=== PATIENT | female | born 1960 | race Caucasian/White ===

== ENCOUNTER 2020-08-27 09:24 | Inpatient (IN) | payer OTHER, SELFPAY ==
[2020-08-27 09:25] VITALS: BP 153/128; PULSE 80; RESP 18; TEMP 36.6; O2SAT 100; BMI 35.0
--- NOTE | 2020-08-27 09:49 | US_ITS ---
STUDY: ABDOMINAL ULTRASOUND - RIGHT UPPER QUADRANT REASON FOR VISIT: Female, 60 years old RUQ PAIN X 1 DAY TECHNIQUE: Ultrasound evaluation of the right upper quadrant was performed with real-time and static padilla-scale imaging. TECHNICAL QUALITY: Adequate. COMPARISON: None. FINDINGS: Liver: The liver measures 15 cm. There is increased echogenicity consistent with fatty infiltration. The bile ducts are within normal limits. There is hepatic color flow. The direction of portal flow is hepatopetal. There is no demonstrated mass lesion. Gallbladder: Normal distended gallbladder. The gallbladder wall measures 3.7 mm. There is a positive sonographic Comer''s sign. There is no pericholecystic fluid. There are multiple echogenic structures within the gallbladder, consistent with multiple gallstones. Common Bile Duct (C.B.D.): The common bile duct measures 4.5 mm. Pancreas: Normal size of the head, body and tail of the pancreas. There is increased echogenicity of the pancreas. There is no demonstrated pancreatic mass or cyst. Right Kidney: Normal size of the right kidney. The right kidney measures 10.3 cm. Normal renal cortex. The right cortex measures 1.5 cm. There is no demonstrated renal mass or cyst. There is no right hydronephrosis. US/Abdomen Limited IMPRESSION: 1. Fatty steatosis of the liver 2. Positive sonographic COMER sign with slight gallbladder wall thickening and multiple stones. 3. Mildly echogenic pancreas Electronically Signed: Gilberto Hooks DO at 11:41 EST Tel , Service support ,
--- NOTE | 2020-08-27 09:53 | ED.DCSUM_ITS ---
History of Present Illness Chief Complaint: Abd Pain Informant: Patient Onset: Yesterday Context: Gradual Onset Timing: Continuous Current Severity: Moderate Maximum Severity: Moderate Narrative: The patient is a 60-year-old female who is otherwise healthy the presents to the emergency department abdominal pain. Patient states that she ate about 6 PM last night. States 1 hour later, she began to have abdominal pain. She describes it as most in the epigastric area towards her right upper quadrant. She states the pain never really went away. Because of the pain, she got nauseated. She states that she is had multiple bouts of emesis. She states now she is just to the point of dry heaves. She states that she has had this pain before in the past, but it was transient and went away. She has no history of prior abdominal surgery. She denies chest pain or shortness of breath. She denies any fevers or chills. She states she is otherwise been in her normal state of health. Prior similar symptoms: Yes Recent Illness/Hospitalization: No Past Medical History - Allergies and Home Meds Allergies/Adverse Reactions: Allergies diphenhydramine [From Benadryl] Adverse Reaction (Verified 08/27/20 09:27) NEEDS FOLLOW-UP Primary Care Physician: Vipin Gutierrez,Out of [NON-STAFF] - Prior records reviewed: Yes Past Medical History: None Surgical History: noncontributory Smoking Status: Never smoker Review of Systems General: Denies: Chills, Fever, Sweats Eyes: Denies: Visual changes - bilaterally, Diplopia ENT: Denies: Rhinorrhea, Sore throat Cardiovascular: Denies: Chest pain, Palpitations Respiratory: Denies: Dyspnea, Cough, Dyspnea on exertion Gastrointestinal: Reports: Abdominal pain, Nausea, Vomiting. Denies: Diarrhea, Melena, Hematochezia Genitourinary: Denies: Dysuria, Hematuria, Frequency Musculoskeletal: Denies: Back pain, Extremity Pain Skin: Denies: Rash, Wounds Neurological: Denies: Headache, Weakness, Numbness Physical Exam Vital Signs/Narrative: Vital Signs Temp Pulse Resp BP Pulse Ox 08/27/20 09:25 97.9 F 80 18 153/128 H 100 Inital Vital Signs reviewed: Yes General: Well nourished, Well developed, No Acute Distress Head: Normocephalic, Atraumatic Eyes: Perrl, EOMI ENT: Moist mucous membranes, No rhinorrhea Neck: Supple, Nontender Cardiovascular: Regular rate, Regular rhythm, No murmurs Respiratory: No distress, CTA bilaterally, Chest nontender Abdomen: Soft, Nondistended, Normal bowel sounds, Tender - Tender in the midepigastric area and right upper quadrant without rebound or guarding Back: Nontender, Normal Inspection Extremities: Nontender, No edema Skin: Normal color, No rash Neurological: Alert, Oriented x3, Cranial nerves II-XII grossly intact, Normal Strength, Normal Sensation Psychological: Normal affect, Normal Mood Diagnostic/Tx/Re-eval Clinical Impression(s) from Imaging Studies Abdomen Ultrasound 08/27/20 09:49 IMPRESSION: 1. Fatty steatosis of the liver 2. Positive sonographic COMER sign with slight gallbladder wall thickening and multiple stones. 3. Mildly echogenic pancreas Electronically Signed: Gilberto Hooks DO at 11:41 EST Tel , Service support , Abnormal Lab Results 08/27/20 08/27/20 08/27/20 09:55 09:55 11:20 WBC 14.4 H RBC 4.44 Hgb 13.8 Hct 41.9 MCV 94.4 MCH 31.1 MCHC 32.9 RDW Std Deviation 44.5 H RDW Coeff of Dhiraj 12.8 Plt Count 220 MPV 10.2 Immature Gran % (Auto) 0.300 Neut % (Auto) 84.4 H Lymph % (Auto) 9.0 L Wirt % (Auto) 6.2 Eos % (Auto) 0.0 Baso % (Auto) 0.1 Absolute Neuts (auto) 12.2 H Absolute Lymphs (auto) 1.30 Nucleated RBC % 0 Sodium 140 Potassium 4.1 Chloride 105 Carbon Dioxide 28.0 Anion Gap 7 BUN 20 H Creatinine 0.94 Estim Creat Clear Calc 53.96 Est GFR (MDRD) Af Amer 79 Est GFR (MDRD) Non-Af 65 BUN/Creatinine Ratio 21.3 H Glucose 126 H Calcium 9.2 Total Bilirubin 0.40 Direct Bilirubin 0.09 AST 26 ALT 49 Alkaline Phosphatase 96 Total Protein 7.4 Albumin 4.1 Globulin 3.3 Lipase 152 Urine Color Yellow Urine Clarity Clear Urine pH 6.0 Ur Specific [place] 1.025 Urine Protein 15 H Urine Glucose (UA) Normal Urine Ketones Negative Urine Occult Blood Negative Urine Nitrite Negative Urine Bilirubin Negative Urine Urobilinogen Normal Ur Leukocyte Esterase Negative Urine RBC 0 SEEN Urine WBC 0 SEEN Ur Squamous Epith Cells 0-5 SEEN Urine Bacteria 0 SEEN Urine Mucus 0 SEEN - Medical Decision Making Patient presents with midepigastric pain into her right upper quadrant with nausea and vomiting. IV was established. The patient was given analgesics and antiemetics. She had almost total resolution of her symptoms. Screening labs were obtained. She does have a leukocytosis. Liver functions, lipase, and chemistry is otherwise unremarkable. With the patient symptoms, she underwent right upper quadrant ultrasound. The right upper quadrant ultrasound did have a positive Comer sign and some questionable gallbladder wall thickening. The patient still had some persistent nausea. I do feel at this point, most prudent plan would be for surgical evaluation. The patient was discussed with Dr. Silver. Impression 1. Right upper quadrant pain 2. Early cholecystitis ED Disposition - Plan for ED Patient: Referrals: [facility] Doctor,Out of [NON-STAFF] -
[2020-08-27] MEDS: Ondansetron 4 MG/2 ML Vial IV ×3 (10:06→20:12)
[2020-08-27] MEDS: 0.9% Normal Saline 1,000 ML 1000 ML IV (10:06)
[2020-08-27] MEDS: Ketorolac 15 MG/ML Vial IV (10:06)
[2020-08-27] MEDS: Morphine 4 MG/ML Syringe IV (10:07)
[2020-08-27 10:08] LABS: Absolute Neutrophil Count 12.2 X10^3/uL (2.0-7.7); Basophil# 0.02 X10^3/uL; Basophil% 0.1 % (0-1); Hematocrit 41.9 % (37-47); Hemoglobin 13.8 g/dL (12.0-15.0); Mean Corp Hgb Conc 32.9 g/dL (32-36); Mean Corpuscular Hgb 31.1 pg (27.0-32.0); Mean Corpuscular Volume 94.4 fL (81-99); Mean Platelet Vol. 10.2 fl (6.2-12.0); Monocyte# 0.89 X10^3/uL; Monocyte% 6.2 % (0-10); NRBC Flagged by Analyzer 0 % (0-5); Neutrophil # 12.16 X10^3/uL (2.7-7.7); Neutrophil % 84.4 % (47-70); Platelet Count 220 K/mm3 (150-450); RBC Distribution Width CV 12.8 % (11.6-14.6); RBC Distribution Width SD 44.5 fl (35.1-43.9); Red Blood Count 4.44 M/mm3 (4.2-5.4); White Blood Count 14.4 K/mm3 (4.4-11.0)
[2020-08-27 10:31] LABS: AST(SGOT) 26 U/L (15-37); Alanine Aminotransfer ALT/SGPT 49 U/L (13-56); Albumin, Serum 4.1 g/dL (3.2-5.0); Alkaline Phosphatase 96 U/L (45-117); Anion Gap 7 (5-15); BUN 20 mg/dL (7-18); BUN/Creat Ratio 21.3 RATIO (10-20); Bilirubin, Direct 0.09 mg/dL (0.00-0.30); Calcium,Total 9.2 mg/dL (8.5-10.1); Chloride 105 mmol/L (98-107); Creatinine, Serum 0.94 mg/dL (0.55-1.02); EST Glomerular Filtration Rate 65 mL/min (>60); Est Glom Filt Rate - Afr Amer 79 mL/min (>60); Estimated Creatinine Clearance 53.96 ml/min; Globulin 3.3 g/dL (2.2-4.2); Glucose 126 mg/dL (74-106); Lipase 152 U/L (73-393); Potassium 4.1 mmol/L (3.5-5.1); Protein, Total 7.4 g/dL (6.4-8.2); Sodium Level 140 mmol/L (136-145)
[2020-08-27 11:26] LABS: Bacteria 0 SEEN /hpf (None Seen); Mucous, Urine 0 SEEN /hpf (<or=2+); Red Blood Cells-Urine 0 SEEN /hpf (0-5); White Blood Cells 0 SEEN /hpf (0-5)
[2020-08-27 11:27] LABS: Color, Urine Yellow (Yellow); Glucose, Dipstick Normal (Normal); Ketone-Dipstick Negative (Negative); Leukocyte Esterase-Dipstick Negative /ul (Negative); Nitrite-Dipstick Negative (Negative); Occult Blood-Urine Negative /ul (Negative); Protein-Dipstick 15 mg/dl (Negative); Specific Gravity, Urine 1.025 (1.002-1.030); Urine Bilirubin Dipstick Negative (Negative); Urine Clarity Clear (Clear); Urine Urobilinogen Normal (Normal)
[2020-08-27 11:33] LABS: Squamous Epithelial Cells - UA 0-5 SEEN /hpf (5-10)
--- NOTE | 2020-08-27 13:01 | NURSING ---
MED SURG CHOLECYSTITIS ROBOTHAM
[2020-08-27 13:29] VITALS: BP 115/67; PULSE 74; RESP 16; TEMP 36.6; O2SAT 98
[2020-08-27 14:07] VITALS: BMI 36.8; BMI 36.9
--- NOTE | 2020-08-27 14:27 | HP.PCM_ITS ---
History of Present Illness Date of Admission: 08/27/20 The patient is a 60 year old F presented to the ER due to epigastric abdominal pain nausea and vomiting. Patient states the pain started last night in the epigastric region continued to get worse. Patient states the pain started about an hour after eating. Patient states she has had previous episodes with increased pain like this twice months did wake her up from sleeping on the other patient stated it was not directly related to eating. Patient ultrasound which showed gallbladder wall of 3.7 mm, gallstones, no pericholecystic fluid, normal common bile duct, normal CBD, increased white blood cell count at 14 with a left shift, positive Comer sign. Patient did get Zosyn IV in the ER. Patient states she does have a history of reflux but does not occur very often depends on what she eats. Patient symptoms from this was burning in the esophagus. Patient is not on any medication for the reflux. Past Medical History Allergies diphenhydramine [From Benadryl] Adverse Reaction (Verified 08/27/20 09:27) NEEDS FOLLOW-UP Home Medications: Ambulatory Orders Medication Instructions Recorded Calcium Carbonate/Vitamin D3 1 ea PO DAILY 08/27/20 [Calcium 500-Vit D3 600 Caplet] Cholecalciferol (Vitamin D3) 2,000 unit PO DAILY 08/27/20 [Vitamin D3] Fish Oil/Dha/Epa [Fish Oil 1,200 1 ea PO DAILY 08/27/20 mg Fish Oil] Ibuprofen 600 mg PO BID PRN PRN 08/27/20 Multivit-Min/Iron/Folic/Rxz279 1 ea PO DAILY 08/27/20 [Hair, Skin and Nails Tablet] Surgical History: - - Lesion removed from the top of her mouth Psychiatric History: No pertinent psych hx ENROLLMENT MANAGER History: No pertinent ENROLLMENT MANAGER history Smoking Status: Never smoker - *Family History Maternal History Items: No pertinent history Review of Systems Constitutional: Reports: Anorexia. Denies: Fever HEENT: Denies: Difficulty Swallowing Cardiovascular: Denies: Chest Pain Respiratory: Denies: Cough Gastrointestinal: Reports: Abdominal Pain, Nausea, Vomiting Genitourinary: Denies: Dysuria Skin: Denies: Jaundice Neurological: Denies: Balance problems Psychiatric: Denies: Depression Hematologic/ Lymphatic: Denies: Easy Bruising, Easy Bleeding VTE Information - Inpt Only VTE Present on Admission: Yes VTE Mechan Device Prophylaxis: SCD's - Physical Exam Vitals/I&O's: Vital Signs Temp Pulse Resp BP Pulse Ox 97.8 F 74 16 115/67 98 08/27/20 13:29 08/27/20 13:29 08/27/20 13:29 08/27/20 13:29 08/27/20 13:29 Oxygen Delivery Method Room Air Weight: 208 lb 5.389 oz Body Mass Index (BMI) 36.8 Intake and Output for Last 24 Hours 08/25/20 08/26/20 08/27/20 23:59 23:59 23:59 Intake Total 1100 / 1100 Balance 1100 / 1100 General: Alert, Oriented x3, Cooperative, No apparent distress HEENT: Atraumatic Lungs: Normal air movement Cardiovascular: Regular rate Abdomen: Soft, Non-Distended, Tender - Right upper quadrant and epigastric, greater in the right upper quadrant Extremities: No clubbing, No cyanosis, No edema Lymphatic: No Cervical, Supraclavicular, or Inguinal Adenopathy Neurological: Cranial nerves II-XII grossly intact Microbiology Past 72 Hours 08/27/20 12:05 Mucosa - Nose SARS-CoV-2 Antigen (Rapid) - Final Laboratory Results 08/27/20 09:55: WBC 14.4 H, RBC 4.44, Hgb 13.8, Hct 41.9, MCV 94.4, MCH 31.1, MCHC 32.9, RDW Std Deviation 44.5 H, RDW Coeff of Dhiraj 12.8, Plt Count 220, MPV 10.2, Immature Gran % (Auto) 0.300, Neut % (Auto) 84.4 H, Lymph % (Auto) 9.0 L, [place] % (Auto) 6.2, Eos % (Auto) 0.0, Baso % (Auto) 0.1, Absolute Neuts (auto) 12.2 H, Absolute Lymphs (auto) 1.30, Nucleated RBC % 0 08/27/20 09:55: Sodium 140, Potassium 4.1, Chloride 105, Carbon Dioxide 28.0, Anion Gap 7, BUN 20 H, Creatinine 0.94, Estim Creat Clear Calc 53.96, Est GFR (MDRD) Af Amer 79, Est GFR (MDRD) Non-Af 65, BUN/Creatinine Ratio 21.3 H, Glucose 126 H, Calcium 9.2, Total Bilirubin 0.40, Direct Bilirubin 0.09, AST 26, ALT 49, Alkaline Phosphatase 96, Total Protein 7.4, Albumin 4.1, Globulin 3.3, Lipase 152 08/27/20 11:20: Urine Color Yellow, Urine Clarity Clear, Urine pH 6.0, Ur Specific [place] 1.025, Urine Protein 15 H, Urine Glucose (UA) Normal, Urine Ketones Negative, Urine Occult Blood Negative, Urine Nitrite Negative, Urine Bilirubin Negative, Urine Urobilinogen Normal, Ur Leukocyte Esterase Negative, Urine RBC 0 SEEN, Urine WBC 0 SEEN, Ur Squamous Epith Cells 0-5 SEEN, Urine Bacteria 0 SEEN, Urine Mucus 0 SEEN Current Medications Lactated Ringer's () 1,000 mls @ 125 mls/hr IV .Q8H [facility]ANE Piperacillin Sod/Tazobactam (Sod 3.375 gm/ Sodium Chloride) 50 mls @ 12.5 mls/hr IV Q8 [facility] Pantoprazole Sodium 40 mg/ (Sodium Chloride) 110 mls @ 330 mls/hr IV Q24 [facility] Morphine Sulfate (Morphine 2 Mg/Ml Syringe) 2 - 4 mg IV Q2H PRN PRN PRN Reason: Pain Score 1-10 Ondansetron HCl (Ondansetron 4 Mg/2 Ml Vial) 4 mg IV Q8H PRN PRN PRN Reason: NAUSEA Assessment/Plan 60-year-old female with cholelithiasis, acute cholecystitis, reflux Reviewed the anatomy with the patient and discussed the procedure: laparoscopic cholecystectomy with possible cholangiograms, possible open. Review risks including but not limited to bleeding, infection, hernia, bile leak, retained gallstones requiring another procedure ERCP- Endoscopic Retrograde Cholangiopancreatography, injury to another organ (bile ducts, common bile duct, small bowel, etc.) may require transfer to another facility and conversion to an open procedure. All questions were answered. Plan for surgery tomorrow We will also place patient on Protonix 40 mg IV daily, in addition to Zosyn 3.375 g IV every 8 hours for acute cholecystitis Yoli Silver M.D. Pager: [phone] [facility] [address] [place] [address], [address] [place] [address] Office: [phone] Procedure Criteria Procedure Type: Elective COVID Risk Discussion: The surgeon/proceduralist and patient have discussed in detail the risk of exposure to and/or potential harm posed by the COVID-19 virus with having a surgery/procedure at this time versus the risk of delaying the surgery/procedure. It is not possible to know either the risk of delaying the surgery or procedure or chance of getting an infection with perfect accuracy, but a joint decision was made between the patient and the surgeon/proceduralist to proceed at this time with the scheduled surgery/procedure as indicated on the consent form.
[2020-08-27 14:32] VITALS: BP 113/65; PULSE 70; RESP 18; TEMP 36.6; O2SAT 98
[2020-08-27] MEDS: 0.9% Normal Saline 1,000 ML 125 ML IV ×2 (15:28→22:40)
[2020-08-27 18:53] VITALS: BP 108/59; PULSE 78; RESP 18; TEMP 37; O2SAT 96
[2020-08-27] MEDS: Morphine 2 MG/ML Syringe IV ×2 (20:12→22:40)
[2020-08-27 20:25] VITALS: BP 104/54; PULSE 84; RESP 18; TEMP 37.2; O2SAT 96
[2020-08-28] VITALS (11 sets, daily range): BP systolic 91–120; BP diastolic 50–68; PULSE 50–98; RESP 16–18; TEMP 36.6–38.1; O2SAT 92–97; BMI 36.8
--- NOTE | 2020-08-28 | GALL_PTH ---
PATIENT: ROXANA GUERRA LOC: MS3 U#:[id number] AGE/SX: 60/F ROOM: MS313 RE08/28/[address]: Dr. Yoli Silver MD : [id number] BED: 1 DIS: 08/29/2020 SPEC #: [id number] RECD: 08/28/20 15:13 STATUS: JENSEN REJosee #: [id number] YANA: 08/28/20 00:[address]: Yoli Silver DEPT: SURGICAL PATHOLOGY RECD BY: Troy John ENTERED: 08/29/20 08:49 SP TYPE: TOSHA PERERA DR: No Primary Care Phys Tissues: Gallbladder, NOS Procedures: Surgery Specimen Level III HEADER OPERATION: Laparoscopic cholecystectomy with IOC PRE-OP DIAGNOSIS: Cholelithiasis; acute cholecystitis; reflux TISSUE SUBMITTED: Gallbladder and contents MICROSCOPIC DIAGNOSIS Gallbladder, cholecystectomy: Acute and chronic cholecystitis with denudation of mucosa and cholelithiasis. AM:ellie 08/30/20 MICROSCOPIC DESCRIPTION Slides are reviewed. GROSS DESCRIPTION Received is one container labeled with the patient's name and designated gallbladder and contents. The specimen consists of a gallbladder measuring 10 cm in length and up to 3 cm in diameter. The serosa is congested. The mucosa is also congested and hemorrhagic. The external surface is pink-gerardo, smooth and glistening for the most part. Focally it is granular, hemorrhagic and contains cautery artifact. Present in the gallbladder and in the container are multiple variable sized brownish-black fragments of stone and stone fragments measuring in aggregate 5 x 5 x 1 cm and 0.1 to 1.5 cm in greatest dimension. The mucosa is bile-stained and without any mass lesions. The gallbladder wall measures up to 1 cm in thickness. Subserosal fat is also noted. One of the stones is impacted at the cystic duct. [employer] Well[employer] Director sections from the gallbladder and the cystic duct are submitted in one cassette. / SJ:ellie 08/29/20 TC:2 CPT: 45912
[2020-08-28] MEDS: Morphine 2 MG/ML Syringe IV ×4 (04:32→22:22)
[2020-08-28] MEDS: Ondansetron 4 MG/2 ML Vial IV (04:32)
[2020-08-28] MEDS: 0.9% Normal Saline 1,000 ML 125 ML IV ×2 (05:29→16:41)
[2020-08-28 05:53] LABS: Absolute Lymphocyte Count 1.39 X10^3/uL (0.83-4.51); Basophil# 0.02 X10^3/uL; Basophil% 0.2 % (0-1); Eosinophil# 0.06 X10^3/uL; Eosinophils% 0.5 % (0-5); Hematocrit 33.3 % (37-47); Hemoglobin 10.9 g/dL (12.0-15.0); Lymphocyte # 1.39 X10^3/ul (4.0); Lymphocyte % 11.8 % (19-41); Mean Corp Hgb Conc 32.7 g/dL (32-36); Mean Corpuscular Hgb 31.3 pg (27.0-32.0); Mean Corpuscular Volume 95.7 fL (81-99); Mean Platelet Vol. 10.2 fl (6.2-12.0); Monocyte# 1.19 X10^3/uL; Monocyte% 10.1 % (0-10); NRBC Flagged by Analyzer 0 % (0-5); Neutrophil # 9.04 X10^3/uL (2.7-7.7); Neutrophil % 77.1 % (47-70); Platelet Count 150 K/mm3 (150-450); RBC Distribution Width CV 13.3 % (11.6-14.6); RBC Distribution Width SD 47.2 fl (35.1-43.9); Red Blood Count 3.48 M/mm3 (4.2-5.4); White Blood Count 11.7 K/mm3 (4.4-11.0)
--- NOTE | 2020-08-28 06:00 | EKG12_ITS ---
Test Reason : PRE-OP Blood Pressure : / mmHG Vent. Rate : 083 BPM Atrial Rate : 083 BPM P-R Int : 154 ms QRS Dur : 088 ms QT Int : 360 ms P-R-T Axes : 030 -18 012 degrees QTc Int : 423 ms Normal sinus rhythm Normal ECG Confirmed by ERIN LEE, DANNIE ([id number]), associate editor FLORIAN DANG ([id number]) on 08/30/2020 9:54:50 AM Referred By: DR ADDISON Confirmed By:DANNIE KHAN MD
[2020-08-28 06:38] LABS: AST(SGOT) 27 U/L (15-37); Alanine Aminotransfer ALT/SGPT 49 U/L (13-56); Albumin, Serum 2.9 g/dL (3.2-5.0); Alkaline Phosphatase 72 U/L (45-117); Anion Gap 4 (5-15); BUN 13 mg/dL (7-18); BUN/Creat Ratio 16.2 RATIO (10-20); Bilirubin, Direct 0.33 mg/dL (0.00-0.30); Calcium,Total 7.6 mg/dL (8.5-10.1); Chloride 109 mmol/L (98-107); EST Glomerular Filtration Rate 78 mL/min (>60); Est Glom Filt Rate - Afr Amer 94 mL/min (>60); Estimated Creatinine Clearance 63.41 ml/min; Globulin 2.8 g/dL (2.2-4.2); Glucose 127 mg/dL (74-106); Potassium 3.2 mmol/L (3.5-5.1); Protein, Total 5.7 g/dL (6.4-8.2); Sodium Level 139 mmol/L (136-145)
[2020-08-28] MEDS: Potassium Chloride 10mEq/100mL 10 MEQ/100 ML IV.SOLN. 100 MEQ IV BOLUS ×4 (09:25→13:51)
--- NOTE | 2020-08-28 10:21 | PCM.PN.SRG ---
Subjective: Patient's pain controlled with medication, white blood count improved on IV Zosyn - Physical Exam Vitals/I&O's: Vital Signs Temp Pulse Resp BP Pulse Ox 99.4 F H 82 16 102/51 L 92 08/28/20 08:52 08/28/20 08:52 08/28/20 08:52 08/28/20 08:52 08/28/20 08:52 Oxygen Delivery Method Room Air Weight: 208 lb 5.389 oz Body Mass Index (BMI) 36.8 Intake and Output for Last 24 Hours 08/26/20 08/27/20 08/28/20 23:59 23:59 23:59 Intake Total 2057.92 / 2707.92 1602.08 / 1602.08 Output Total 350 / 350 Balance 2057.92 / 2707.92 1252.08 / 1252.08 General: Alert, Oriented x3, Cooperative, No apparent distress HEENT: Atraumatic Lungs: Normal air movement Cardiovascular: Regular rate Abdomen: Soft, Non-Distended, Tender - Right upper quadrant and epigastric Extremities: No clubbing, No cyanosis, No edema Neurological: Cranial nerves II-XII grossly intact Psych/Mental Status: Normal Affect Microbiology Past 72 Hours 08/27/20 12:05 Mucosa - Nose SARS-CoV-2 Antigen (Rapid) - Final Laboratory Results 08/27/20 09:55: Sodium 140, Potassium 4.1, Chloride 105, Carbon Dioxide 28.0, Anion Gap 7, BUN 20 H, Creatinine 0.94, Estim Creat Clear Calc 53.96, Est GFR (MDRD) Af Amer 79, Est GFR (MDRD) Non-Af 65, BUN/Creatinine Ratio 21.3 H, Glucose 126 H, Calcium 9.2, Total Bilirubin 0.40, Direct Bilirubin 0.09, AST 26, ALT 49, Alkaline Phosphatase 96, Total Protein 7.4, Albumin 4.1, Globulin 3.3, Lipase 152 08/27/20 11:20: Urine Color Yellow, Urine Clarity Clear, Urine pH 6.0, Ur Specific [place] 1.025, Urine Protein 15 H, Urine Glucose (UA) Normal, Urine Ketones Negative, Urine Occult Blood Negative, Urine Nitrite Negative, Urine Bilirubin Negative, Urine Urobilinogen Normal, Ur Leukocyte Esterase Negative, Urine RBC 0 SEEN, Urine WBC 0 SEEN, Ur Squamous Epith Cells 0-5 SEEN, Urine Bacteria 0 SEEN, Urine Mucus 0 SEEN 08/28/20 05:40: WBC 11.7 H, RBC 3.48 L, Hgb 10.9 L, Hct 33.3 L, MCV 95.7, MCH 31.3, MCHC 32.7, RDW Std Deviation 47.2 H, RDW Coeff of Dhiraj 13.3, Plt Count 150, MPV 10.2, Immature Gran % (Auto) 0.300, Neut % (Auto) 77.1 H, Lymph % (Auto) 11.8 L, [place] % (Auto) 10.1 H, Eos % (Auto) 0.5, Baso % (Auto) 0.2, Absolute Neuts (auto) 9.0 H, Absolute Lymphs (auto) 1.39, Nucleated RBC % 0 08/28/20 05:40: Sodium 139, Potassium 3.2 L, Chloride 109 H, Carbon Dioxide 26.0, Anion Gap 4 L, BUN 13, Creatinine 0.80, Estim Creat Clear Calc 63.41, Est GFR (MDRD) Af Amer 94, Est GFR (MDRD) Non-Af 78, BUN/Creatinine Ratio 16.2, Glucose 127 H, Calcium 7.6 L, Total Bilirubin 0.90, Direct Bilirubin 0.33 H, AST 27, ALT 49, Alkaline Phosphatase 72, Total Protein 5.7 L, Albumin 2.9 L, Globulin 2.8 Current Medications Sodium Chloride () 1,000 mls @ 125 mls/hr IV .Q8H [facility] Last Admin: 08/28/20 05:29 Dose: 125 mls/hr Documented by: Piperacillin Sod/Tazobactam (Sod 3.375 gm/ Sodium Chloride) 50 mls @ 12.5 mls/hr IV Q8 [facility] Last Infusion: 08/28/20 09:30 Dose: Infused Documented by: Pantoprazole Sodium 40 mg/ (Sodium Chloride) 110 mls @ 330 mls/hr IV Q24 [facility] Last Infusion: 08/27/20 18:25 Dose: Infused Documented by: Sodium Chloride () 250 mls @ 15 mls/hr IV .[id number] PRN PRN Reason: Saline Flush Sodium Chloride () 250 mls @ 15 mls/hr IV .[id number] PRN PRN Reason: Additional IVPB Infusion Potassium Chloride () 10 meq in 100 mls @ 100 mls/hr IV BOLUS Q1H [facility] Stop: 08/28/20 13:29 Last Admin: 08/28/20 09:25 Dose: 100 mls/hr Documented by: Morphine Sulfate (Morphine 2 Mg/Ml Syringe) 2 - 4 mg IV Q2H PRN PRN PRN Reason: Pain Score 1-10 Last Admin: 08/28/20 04:32 Dose: 2 mg Documented by: Ondansetron HCl (Ondansetron 4 Mg/2 Ml Vial) 4 mg IV Q8H PRN PRN PRN Reason: NAUSEA Last Admin: 08/28/20 04:32 Dose: 4 mg Documented by: Sodium Chloride (0.9% Saline Lock 10 Ml Syringe) 10 - 40 ml IV UD PRN PRN Reason: SALINE FLUSH Medical Necessity - Tobacco Use Smoking Status: Never smoker Assessment/Plan 60-year-old female with cholelithiasis, acute cholecystitis, reflux plan for laparoscopic cholecystectomy today. Yoli Silver M.D. Pager: [phone] [facility] [address] [place] [address], [address] [place] [address] Office: [phone]
--- NOTE | 2020-08-28 13:00 | RAD_ITS ---
STUDY: INTRAOPERATIVE CHOLANGIOGRAM. REASON FOR EXAM: Female, 60 years old. OPERATIVE CHOLANGIOGRAM. CHOLECYSTITIS FLUOROSCOPY TIME (if supplied): ( 57.2 seconds ) minutes/seconds. A cine loop of 56 images were submitted. TECHNIQUE: An intraoperative glandular was performed by the surgeon. COMPARISON: None. FINDINGS: Nondilated intra and extra hepatic biliary ducts. I suspect a tiny filling defect in the distal portion of the common bile duct. There is flow of contrast into the duodenum. RAD/Cholangiogram/ O R,Initial IMPRESSION: Findings suggestive of a tiny calculus in the distal portion of the common bile duct although there is evidence of flow into the duodenum. Electronically Signed: Peter Lozano, at 12:32 EST , Service support ,
[2020-08-28] MEDS: Bupivacaine Mpf 0.5% 30 ML VIAL (14:26)
--- NOTE | 2020-08-28 14:27 | PCM.OPRPT ---
Report of Operation Date of Procedure: 08/28/20 Pre-Operative Diagnosis: Acute cholecystitis, cholelithiasis Post-Operative Diagnosis: Same, choledocholithiasis Surgery/Procedure Performed:: Laparoscopic cholecystectomy with cholangiograms Type of Anesthesia:: General/Supplemental Anesthesiologist: Faraz Lock Special Medications: Zosyn 3.375 g IV every 8 hours for acute cholecystitis given on the floor Specimen's removed: Gallbladder and stones Estimated Blood Loss (mL): 20 cc Fluids Replaced: 600 cc Description of Procedure: Indications this is a 60 year-old female who developed abdominal pain/nausea/vomiting and on workup was found to have acute cholecystitis with a thickened wall, cholelithiasis, with a normal common bile duct and normal LFTs. Laparoscopic cholecystectomy was elected. Description procedure: The patient was placed on operating table in supine position. General Anesthesia was induced. A timeout was completed verifying correct patient, procedure, site, position and special equipment prior to beginning procedure. The abdomen was prepped and draped in usual sterile fashion. An incision was made in the natural skin line above the umbilicus. The fascia was elevated and incised. The peritoneum was elevated and incised. Entry into the peritoneum was confirmed visually and no bowel was noted in the vicinity of the incision. Bradshaw trocar was placed. The abdomen was insufflated with carbon dioxide to a pressure of 12-15 mmHg. Patient tolerated insufflation well. The laparoscope was then inserted and abdomen inspected. No injuries from initial trocar placement were noted. Additional trochars were then inserted in the following locations 5 mm trocar in the epigastrium and 2 more 5 mm trochars along the right costal margin. The abdomen was inspected no abnormalities were found. The table is placed in reverse Trendelenburg position with the right side up. The adhesions between the gallbladder and omentum were lysed sharply. The dome of the gallbladder was grasped with atraumatic grasper passed through the lateral port and retracted over the dome of the liver. Infundibulum was then grasped with atraumatic grasper through the midclavicular port and retracted to the right lower quadrant. This maneuver exposed Calot's triangle. The peritoneum overlying the gallbladder infundibulum was then incised and cystic duct and artery identified and circumferentially dissected. Ranfac catheter was used for cholangiograms. A small incision was made in the right upper quadrant with a 15 blade scalpel to accommodate the Ranfac catheter. A clip was laced on the distal gallbladder and scissors used to make a anup into the cystic duct. Ranfac catheter was placed in the cystic duct. Cholangiograms showed good flow into the right and left bile ducts and showed evidence of a small stone at the distal common bile duct, did attempt to flush the stone through with saline/contrast but it did not appear to pass. The cystic duct and artery were then doubly clipped and divided close to the gallbladder. The gallbladder then dissected from its peritoneal attachments by electrocautery. Hemostasis was checked and the gallbladder and contained stones were removed using the endoscopic retrieval bag through the umbilical port. The gallbladder is passed off table as specimen. The gallbladder fossa was copiously irrigated with saline and hemostasis obtained. There is no evidence of bleeding from the gallbladder fossa or cystic artery leakage of bile from the cystic duct stump. Secondary trochars removed under direct vision. No bleeding was noted the trocar sites. The laparoscope was withdrawn and umbilical trocar removed. The abdomen was allowed to collapse. The fascia of the 12 mm trocar was closed with a [id number] 0 Vicryl suture. The skin was closed with sutures of 4-0 Monocryl and Steri-Strips. The orogastric tube was removed and the patient was extubated. The patient tolerated procedure well and was taken to the postanesthesia care unit in stable condition. - Complications None
[2020-08-28] MEDS: 0.9% Saline Lock 10 ML Syringe IV (17:23)
[2020-08-29] VITALS (8 sets, daily range): BP systolic 92–118; BP diastolic 51–67; PULSE 64–78; RESP 16–18; TEMP 36.6–37; O2SAT 92–100
[2020-08-29] MEDS: 0.9% Normal Saline 1,000 ML 125 ML IV ×2 (00:03→07:29)
[2020-08-29] MEDS: Morphine 2 MG/ML Syringe IV ×2 (03:03→07:54)
[2020-08-29] MEDS: 0.9% Saline Lock 10 ML Syringe IV ×3 (03:05→13:36)
[2020-08-29 07:02] LABS: Absolute Lymphocyte Count 0.87 X10^3/uL (0.83-4.51); Basophil# 0.01 X10^3/uL; Basophil% 0.1 % (0-1); Eosinophil# 0.01 X10^3/uL; Eosinophils% 0.1 % (0-5); Hematocrit 29.9 % (37-47); Hemoglobin 9.5 g/dL (12.0-15.0); Lymphocyte # 0.87 X10^3/ul (4.0); Mean Corp Hgb Conc 31.8 g/dL (32-36); Mean Corpuscular Hgb 31.1 pg (27.0-32.0); Mean Platelet Vol. 9.9 fl (6.2-12.0); Monocyte# 0.73 X10^3/uL; Monocyte% 7.5 % (0-10); NRBC Flagged by Analyzer 0 % (0-5); Neutrophil # 7.99 X10^3/uL (2.7-7.7); Neutrophil % 82.7 % (47-70); Platelet Count 133 K/mm3 (150-450); RBC Distribution Width CV 13.6 % (11.6-14.6); RBC Distribution Width SD 49.5 fl (35.1-43.9); Red Blood Count 3.05 M/mm3 (4.2-5.4); White Blood Count 9.7 K/mm3 (4.4-11.0)
--- NOTE | 2020-08-29 07:12 | PN.SURG_ITS ---
Subjective: Patient is not having any abdominal pain or nausea vomiting this morning - Physical Exam Vitals/I&O's: Vital Signs Temp Pulse Resp BP Pulse Ox 98.6 F 75 16 118/67 93 08/29/20 02:56 08/29/20 02:56 08/29/20 02:56 08/29/20 03:06 08/29/20 02:56 Oxygen Flow Rate (L/min) 2 Oxygen Delivery Method Room Air Weight: 208 lb 5.389 oz Body Mass Index (BMI) 36.8 Intake and Output for Last 24 Hours 08/27/20 08/28/20 08/29/20 23:59 23:59 23:59 Intake Total 2057.92 / 2707.92 3462.08 / 3462.08 1170.83 / 1170.83 Output Total 1150 / 1150 500 / 500 Balance 2057.92 / 2707.92 2312.08 / 2312.08 670.83 / 670.83 General: Alert, Oriented x3 Lungs: Normal air movement Abdomen: Soft, Non Tender, Non-Distended Microbiology Past 72 Hours 08/27/20 12:05 Mucosa - Nose SARS-CoV-2 Antigen (Rapid) - Final Laboratory Results 08/29/20 06:54: WBC 9.7, RBC 3.05 L, Hgb 9.5 L, Hct 29.9 L, MCV 98.0, MCH 31.1, MCHC 31.8 L, RDW Std Deviation 49.5 H, RDW Coeff of Dhiraj 13.6, Plt Count 133 L, MPV 9.9, Immature Gran % (Auto) 0.600, Neut % (Auto) 82.7 H, Lymph % (Auto) 9.0 L, Stanley % (Auto) 7.5, Eos % (Auto) 0.1, Baso % (Auto) 0.1, Absolute Neuts (auto) 8.0 H, Absolute Lymphs (auto) 0.87, Nucleated RBC % 0 08/29/20 06:54: Total Bilirubin Pending, Direct Bilirubin Pending, AST Pending, ALT Pending, Alkaline Phosphatase Pending, Total Protein Pending, Albumin Pending 08/29/20 06:54: Sodium Pending, Potassium Pending, Chloride Pending, Carbon Dioxide Pending, Anion Gap Pending, BUN Pending, Creatinine Pending, Est GFR (MDRD) Af Amer Pending, Est GFR (MDRD) Non-Af Pending, BUN/Creatinine Ratio Pending, Glucose Pending, Calcium Pending Current Medications Acetaminophen (Acetaminophen 325 Mg Tablet) 650 mg PO Q6H PRN PRN PRN Reason: Pain Score 1-10 Sodium Chloride () 1,000 mls @ 125 mls/hr IV .Q8H [facility] Last Admin: 08/29/20 00:03 Dose: 125 mls/hr Documented by: Piperacillin Sod/Tazobactam (Sod 3.375 gm/ Sodium Chloride) 50 mls @ 12.5 mls/hr IV Q8 [facility] [place] Last Admin: 08/29/20 05:41 Dose: 12.5 mls/hr Documented by: Pantoprazole Sodium 40 mg/ (Sodium Chloride) 110 mls @ 330 mls/hr IV Q24 [facility] [place] [place] Last Infusion: 08/28/20 17:02 Dose: Infused Documented by: Sodium Chloride () 250 mls @ 15 mls/hr IV .[id number] PRN PRN Reason: Saline Flush Sodium Chloride () 250 mls @ 15 mls/hr IV .[id number] PRN PRN Reason: Additional IVPB Infusion Morphine Sulfate (Morphine 2 Mg/Ml Syringe) 2 - 4 mg IV Q2H PRN PRN PRN Reason: Pain Score 1-10 Last Admin: 08/29/20 03:03 Dose: 4 mg Documented by: Ondansetron HCl (Ondansetron 4 Mg/2 Ml Vial) 4 mg IV Q8H PRN PRN PRN Reason: NAUSEA Last Admin: 08/28/20 04:32 Dose: 4 mg Documented by: Oxycodone HCl (Oxycodone 5 Mg Tablet) 5 - 10 mg PO Q4H PRN PRN PRN Reason: Pain Score 1-10 Sodium Chloride (0.9% Saline Lock 10 Ml Syringe) 10 - 40 ml IV UD PRN PRN Reason: SALINE FLUSH Last Admin: 08/29/20 03:05 Dose: 20 ml Documented by: Medical Necessity - Tobacco Use Smoking Status: Never smoker Assessment/Plan 60-year-old female with choledocholithiasis 1. Patient had laparoscopic cholecystectomy yesterday on intraoperative cholangiogram the patient was found to have a distal common bile duct stone. I discussed ERCP with the patient this morning. I discussed the risks including not limited to bleeding, infection, perforation of the bile duct or bowel, pancreatitis. Patient understands the risks and is willing to proceed with ERCP this afternoon. Eddie Saxena MD Pager: [facility] [address] [place] [address] [address] [place] [address] Office:
[2020-08-29 07:32] LABS: Anion Gap 6 (5-15); BUN 11 mg/dL (7-18); Calcium,Total 7.9 mg/dL (8.5-10.1); Chloride 108 mmol/L (98-107); Creatinine, Serum 0.85 mg/dL (0.55-1.02); EST Glomerular Filtration Rate 73 mL/min (>60); Est Glom Filt Rate - Afr Amer 88 mL/min (>60); Estimated Creatinine Clearance 59.68 ml/min; Glucose 129 mg/dL (74-106); Potassium 3.7 mmol/L (3.5-5.1); Sodium Level 139 mmol/L (136-145)
[2020-08-29 07:43] LABS: AST(SGOT) 51 U/L (15-37); Alanine Aminotransfer ALT/SGPT 102 U/L (13-56); Albumin, Serum 2.5 g/dL (3.2-5.0); Alkaline Phosphatase 84 U/L (45-117); Bilirubin, Direct 0.19 mg/dL (0.00-0.30); Globulin 3.3 g/dL (2.2-4.2); Protein, Total 5.8 g/dL (6.4-8.2)
--- NOTE | 2020-08-29 12:32 | NURSING ---
informed pt bowel sounds hypoactive, encouraged ambulation. Stated she had been ambulating in the room but will get up and sit in the recliner.
[2020-08-29] MEDS: Lactated Ringers 1,000 ML 100 ML IV (14:19)
--- NOTE | 2020-08-29 14:30 | RAD_ITS ---
STUDY: ERCP REASON FOR EXAM: Female, 60 years old. ERCP FLUOROSCOPY TIME (if supplied): ( 31.6 seconds ) minutes/seconds. 2 images were submitted. TECHNIQUE: An ERCP was performed by the surgeon. Imaging was performed COMPARISON: Comparison is made with prior examination dated 08/28/2020. FINDINGS: There is opacification of the common bile duct. No intraluminal filling defect is seen. RAD/ERCP Biliary Only IMPRESSION: No intraluminal filling defect is seen. Electronically Signed: Peter Lozano, at 15:20 EST , Service support ,
--- NOTE | 2020-08-29 15:14 | OP.ERCP_ITS ---
Patient Name: Radha Smith Procedure Date: 08/29/2020 2:29 PM Date of : 1960 Age: 60 Procedure: ERCP Indications: Common bile duct stone(s) Providers: Eddie Saxena MD Medicines: General Anesthesia Patient Profile: This is a 60 year old female. Refer to note in patient chart for documentation of history and physical. Complications: No immediate complications. Procedure: Pre-Anesthesia Assessment: - Prior to the procedure, a History and Physical was performed, and patient medications and allergies were reviewed. The patient's tolerance of previous anesthesia was also reviewed. The risks and benefits of the procedure and the sedation options and risks were discussed with the patient. All questions were answered, and informed consent was obtained. Prior Anticoagulants: The patient has taken no previous anticoagulant or antiplatelet agents. After reviewing the risks and benefits, the patient was deemed in satisfactory condition to undergo the procedure. After obtaining informed consent, the scope was passed under direct vision. Throughout the procedure, the patient's blood pressure, pulse, and oxygen saturations were monitored continuously. The duodenoscope was introduced through the mouth, and advanced to the duodenum and used to inject contrast into the bile duct. The ERCP was accomplished without difficulty. The patient tolerated the procedure well. Scope In: 2:56:28 PM Scope Out: 3:01:05 PM Total Procedure Duration Time 0 hours 4 minutes 37 seconds Findings: The major papilla was normal. A 0.035 inch x 260 cm straight Dreamwire was passed into the biliary tree. The sphincterotome was passed over the guidewire and the bile duct was then deeply cannulated. Contrast was injected. Biliary sphincterotomy was made with a monofilament sphincterotome using ERBE electrocautery. There was no post-sphincterotomy bleeding. The biliary tree was swept with a 12 mm balloon starting at the bifurcation. One stone was removed. No stones remained. The endoscope was withdrawn from the patient. Impression: - The major papilla appeared normal. - Choledocholithiasis was found. Complete removal was accomplished by biliary sphincterotomy and balloon extraction. - A biliary sphincterotomy was performed. - The biliary tree was swept. Recommendation: - Return patient to [facility] care. - Resume regular diet. Procedure Code(s): --- Professional --- 95355, Endoscopic retrograde cholangiopancreatography (ERCP); with removal of calculi/debris from biliary/pancreatic duct(s) 00521, 51, Endoscopic retrograde cholangiopancreatography (ERCP); with sphincterotomy/papillotomy Diagnosis Code(s): --- Professional --- K80.50, Calculus of bile duct without cholangitis or cholecystitis without obstruction CPT copyright 2017 [employer]. All rights reserved. The codes documented in this report are preliminary and upon onshore diver review may be revised to meet current compliance requirements. Eddie Saxena MD 08/29/2020 3:13:44 PM This report has been signed electronically. Number of Addenda: 0 Note Initiated On: 08/29/2020 2:29 PM
--- NOTE | 2020-08-29 15:14 | OP.CCLET_ITS ---
08/29/2020 No Primary Care Physician Re : ERCP procedure for Radha Smith Dear Care Physician This procedure was performed on Saturday, August 29, 2020. My impressions and recommendations are as follows: Impressions : - The major papilla appeared normal. - Choledocholithiasis was found. Complete removal was accomplished by biliary sphincterotomy and balloon extraction. - A biliary sphincterotomy was performed. - The biliary tree was swept. Recommendations : - Return patient to [facility] care. - Resume regular diet. My findings are described in the full procedure note, which is enclosed. If I can be of further assistance, please feel free to contact me at Doctor phone number(s): , Work: . Sincerely, Eddie Saxena MD 08/29/2020 3:13:44 PM This report has been signed electronically.
--- NOTE | 2020-08-29 15:15 | PCM.DC.GB ---
Discharge Diet: Light diet - advance as tolerated Discharge Activity: Return to Normal Activity, May Not Drive - for 2-3 days or while taking narcotic pain medicataions., - - Do not drive, work heavy equipment or sign legal documents for 24 hours. May shower in (days): 1 - with the bandage in place. Lifting Restrictions: 20 lbs for 4 weeks Additional Activity Instructions:: Pain medication may cause nausea. You should typically eat light foods as you take your pain medications. Pain medication may also cause constipation. If this is a problem for you, please discuss with your doctor. Call your doctor if your incision/area has: Continuous Slow Oozing, Sudden Increased Bleeding, Increased Pain/ Swelling, Increased Redness, Foul Smelling Discharge, Fever of 101 or Higher Call your doctor if you observe: Fever of 101 or Higher Suture Line Care: Avoid Pulling/Pushing, Avoid Pinching/Bending Additional Dressing/Incision Instructions:: Leave operative bandaids on for 2 days. When you remove dressing, leave Steri-Strips on until your follow-up appointment, or until the Steri-Strips fall off on their own. Allergies/Adverse Reactions: Allergies diphenhydramine [From Benadryl] Adverse Reaction (Verified 08/27/20 09:27) NEEDS FOLLOW-UP Medications to take at Discharge Calcium Carbonate/Vitamin D3 [Calcium 500-Vit D3 600 Caplet] 1 ea PO DAILY 08/27/20 Cholecalciferol (Vitamin D3) [Vitamin D3] 2,000 unit PO DAILY 08/27/20 Fish Oil/Dha/Epa [Fish Oil 1,200 mg Fish Oil] 1 ea PO DAILY 08/27/20 Ibuprofen 600 mg PO BID PRN PRN 08/27/20 Multivit-Min/Iron/Folic/Ipn350 [Hair, Skin and Nails Tablet] 1 ea PO DAILY 08/27/20 Oxycodone HCl/Acetaminophen [Percocet 5/325] 1 - 2 tab PO Q6H PRN PRN 4 Days #20 tab 08/28/20 Pantoprazole Sodium 40 mg PO DAILY #30 tablet. 08/29/20 The following prescriptions were given: Pantoprazole Sodium 40 mg PO DAILY #30 tablet. Transmission Status: Received by [facility] Oxycodone HCl/Acetaminophen [Percocet 5/325] 1 - 2 tab PO Q6H PRN PRN 4 Days #20 tab PRN Reason: Pain Transmission Status: Received by [facility] Primary Care Physician: [facility] Doctor,Out of [NON-STAFF] - Test Results: Test results from this visit will be discussed in further detail at your follow-up appointment, if applicable. Please Follow Up With: Yoli Silver MD When: Please call to schedule 2 week follow up appointment. [phone]
--- NOTE | 2020-08-29 15:41 | SUR.OPER ---
ZOSYN GIVEN BY ANESTHESIA PRIOR TO START OF ERCP.
== END 2020-08-29 17:15 | disposition home or self-care (01) | DRG 419 ==
LOC: ED 10:22 → MS3 13:37
PROVIDERS: Surgery; Admitting Provider Surgery; Emergency Provider Emergency Medicine; Visit Provider Surgery
PROC: (CPT 47610; principal; 2020-08-28 10:25)
DX: K80.66 Calculus of gallbladder and bile duct with acute and chronic cholecystitis without obstruction (principal); K21.9 Gastro-esophageal reflux disease without esophagitis
CPT/HCPCS: 74300; 74328; 76000; 76705; 80048; 80076; 81001; 83690; 85025; 87426; 88304; 93005; 99284; J7030; J7040; J7120; A4216; J1610; J2405